=== PATIENT | female | born 1990 ===

== ENCOUNTER → 2020-02-28 04:25 | Observation (INO) | END | disposition home or self-care (01) | LOC: 1NENULAB | PROVIDERS: ADMIT Obstetrics & Gynecology; ATTEND Obstetrics & Gynecology ==

== ENCOUNTER 2020-03-07 17:05 | Inpatient (IN) ==
[~2020-03-07 17:05] MED LIST: *HR* FentaNYL (PF) 100 MCG/2 ML VIAL IVP PRN; Famotidine 20 MG/2 ML VIAL IVP PRN; Metoclopramide 10 MG/2 ML VIAL IVP PRN; Naloxone 0.4 MG/ML INJ IVP PRN; Ringers Solution, Lactated 1,000 ML ONE
[2020-03-07] MEDS ORDERED: Ringers Solution, Lactated 1,000 ML IVC SCH (17:15)
[2020-03-07] MEDS ORDERED: Bupivacaine-MPF 0.25% 10 ML VIAL EP ONE (17:22)
[2020-03-07] MEDS ORDERED: Oxytocin 20 units/ LR 1000 mL 20 UNIT/1,000 ML BAG IVC ONE ×2 (17:22→19:31)
[2020-03-07] MEDS ORDERED: EPHEDrine 50 MG/ML VIAL IVP PRN (17:22)
[2020-03-07] MEDS ORDERED: *HR* FentaNYL (PF) 100 MCG/2 ML VIAL EP ONE (17:22)
[2020-03-07] MEDS ORDERED: Bupivacaine-MPF 0.25% 10 ML VIAL ONE (17:24)
[2020-03-07] MEDS ORDERED: *HR* FentaNYL (PF) 100 MCG/2 ML VIAL ONE (17:24)
[2020-03-07] MEDS ORDERED: Epidural Premix (fent/bupiv) 110 ML EP SCH (17:30)
[2020-03-07 17:36] LABS: Basophils # 0.1 K/mcL (0.0-0.2); Basophils % 0.3 %; Eosinophils % 0.3 %; Hematocrit 39.4 % (35.3-44.9); Hemoglobin 12.9 g/dL (11.5-15.4); Immature Granulocytes % 0.4 % (0-4); Lymphocytes # 2.5 K/mcL (0.6-4.6); Lymphocytes % 15.7 %; Mean Corpuscular HGB Conc 32.7 g/dL (31.6-35.5); Mean Corpuscular Hemoglobin 28.8 pg (28.0-33.3); Mean Corpuscular Volume 87.9 fL (83.0-100.0); Mean Platelet Volume 12.1 fL (9.4-12.4); Monocytes # 1.1 K/mcL (0.0-1.3); Monocytes % 6.6 %; Neutrophils # 12.1 K/mcL (1.6-8.9); Platelet Count 218 K/mcL (140-400); Red Blood Count 4.48 M/mcL (3.82-4.97); Red Cell Distribution Width 13.3 % (11.5-14.5); Segmented Neutrophils % 76.7 %; White Blood Count 15.8 K/mcL (4.3-11.1)
[2020-03-07 17:40] LABS: Amphetamine Screen,Urine Negative ng/mL (Cutoff=1000); Barbiturate Screen,Urine Negative ng/mL (Cutoff=200); Benzodiazepines Screen,Urine Negative ng/mL (Cutoff=200); Cannabinoid Screen,Urine Negative ng/mL (Cutoff = 50); Cocaine Screen,Urine Negative ng/mL (Cutoff= 300); Opiate Screen,Urine Negative ng/mL (Cutoff=300); Phencyclidine Screen,Urine Negative ng/mL (Cutoff=25)
[2020-03-07] MEDS ORDERED: Lanolin 7 G OINT...G. TP PRN (20:32)
[2020-03-07] MEDS ORDERED: Acetaminophen 325 MG TABLET PO PRN (20:32)
[2020-03-07] MEDS ORDERED: Benzocaine/Menthol 56 GM AEROSOL SPRAY TP PRN (20:32)
[2020-03-07] MEDS ORDERED: Oxytocin 20 units/ LR 1000 mL 20 UNIT/1,000 ML BAG IVC SCH (20:32)
[2020-03-07] MEDS: Ibuprofen 600 MG TABLET PO PRN (21:04)
[2020-03-08] MEDS: Ibuprofen 600 MG TABLET PO PRN (07:29)
[2020-03-08 08:12] VITALS: BP 115/73
[2020-03-08] MEDS ORDERED: Prenatal Vit/FA 1 EACH TABLET PO SCH (09:00)
== END 2020-03-08 18:33 | disposition home or self-care (01) | DRG 560 ==
LOC: 1NENULAB → 1NENUOBS 20:15
PROVIDERS: ADMIT Obstetrics & Gynecology; ATTEND Obstetrics & Gynecology